=== PATIENT | female | born 1960 | race Caucasian/White ===

== ENCOUNTER 2017-10-03 19:03 | Emergency (ER) | END 2017-10-03 21:50 | disposition home or self-care (01) ==

== ENCOUNTER 2018-11-10 18:25 | Emergency (ER) | payer OTHER ==
[~2018-11-10] VITALS: Ht 152.4 cm; Wt 62.7 kg
[~2018-11-10 18:25] MED LIST: ACET500C5 PO; AMOX500C2 PO; IBUP-1561 PO
[2018-11-10 19:15] VITALS: Ht 152.4 cm; Wt 62.7 kg
[2018-11-10] MEDS ORDERED: TRAM50TA2 PO (22:46)
[2018-11-10] MEDS ORDERED: IBUP800T48 PO (22:46)
[2018-11-10] MEDS ORDERED: CYCL10TA7 PO (22:46)
--- NOTE | 2018-11-10 22:50 | ERD ---
ER Documentation Chief Complaint Chief Complaint right hand pain x 2 weeks. denies trauma HPI 58-year-old female is here with right hand pain that she has had for 2 weeks. 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 No numbness or tingling. Pain is localized in the radial aspect of the hand. Has been taking ibuprofen at home. No trauma. ROS All systems reviewed and are negative except as per history of present illness. Medications Home Meds Active Scripts Tramadol HCl (Tramadol HCl) 50 Mg Tablet, 50 MG PO Q4 PRN for PAIN, #20 TAB Prov:QUINTIN MANUEL PA-C 11/10/18 Ibuprofen* (Motrin*) 800 Mg Tab, 800 MG PO Q6, #30 TAB Prov:QUINTIN MANUEL PA-C 11/10/18 Cyclobenzaprine Hcl* (Cyclobenzaprine Hcl*) 10 Mg Tablet, 10 MG PO TID, #15 TAB Prov:QUINTIN MANUEL PA-C 11/10/18 Acetaminophen* (Tylophen*) 500 Mg Capsule, 1 CAP PO Q6H PRN for PAIN AND OR ELEVATED TEMP, #20 CAP Prov:HONG SOSA [employer] 10/03/17 Ibuprofen* (Motrin*) 400 Mg Tab, 400 MG PO Q6H PRN for PAIN AND OR ELEVATED TEMP, #30 TAB Prov:HONG SOSA [employer] 10/03/17 Amoxicillin* (Amoxicillin*) 500 Mg Cap, 500 MG PO TID for 10 Days, CAP Prov:HONG SOSA [employer] 10/03/17 Reported Medications [none] Unknown Strength No Conflict Check 10/03/17 Allergies Allergies: Coded Allergies: No Known Allergy (Unverified , 10/03/17) PMhx/Soc Medical and Surgical Hx: pt denies Surgical Hx Hx Cardiac Disorders: Yes (High Cholesterol) Hx Alcohol Use: No Hx Substance Use: No Hx Tobacco Use: No Smoking Status: Never smoker FmHx Family History: No diabetes Physical Exam Vitals Vital Signs Date Temp Pulse Resp B/P (MAP) Pulse Ox O2 O2 Flow FiO2 Time Delivery Rate 11/10/18 97.3 80 18 135/73 97 19:15 (93) Physical Exam Const: No acute distress Head: Atraumatic Eyes: Normal Conjunctiva ENT: Normal External Ears, Nose and Mouth. Neck: Full range of motion. No meningismus. Resp: Clear to auscultation bilaterally Cardio: Regular rate and rhythm, no murmurs Hand -right Skin: No laceration, or evidence of external trauma Compartments: Soft Sensation: Intact shoulder/pinky/middle finger/thumb web space Bones: Nontender Snuffbox: Nontender Joints: No effusion Wrist: Flex/Ext: Normal Uln/Radial deviation: Normal Pron/Supination Normal Finger: Flex/Ext: Normal Add/abd: Normal Thumb: Flex/Ext: Normal Opposition: Normal Thumbs up: Normal Procedures/MDM Right hand pain. No trauma. Neurovascularly intact. Prescription for ibuprofen Flexeril and tramadol given. No indication for imaging at this time. Patient counseled regarding my diagnostic impression and care plan. Prior to discharge all questions answered. Pt agrees with treatment plan and understands strict return precautions. Pt is instructed to follow up with primary care provider within 24-48 hours. Precautionary instructions provided including instr uctions to return to the ER if not improving or for any worsening or changing symptoms or concerns. Departure Diagnosis: Primary Impression: Pain of hand Condition: Stable Patient Instructions: Sprain Hand Additional Instructions: Llame al doctor ALFREDO y maría elena patricia GRZEGORZ PARA DENTRO DE 1-2 RIVERA.Dgale a la secretaria que nosotros le instruimos hacer esta grzegorz.Avise o llame si may cond icin se empeora antes de la grzegorz. Regresa aqui si peor o no mejor. QUINTIN MANUEL PA-C Nov 10, 2018 22:50
[2018-11-10 23:14] VITALS: BP 144/79; PULSE 69; RESP 18
== END 2018-11-10 23:15 | disposition home or self-care (01) ==
LOC: FTE 18:25
DX: M79.641 Pain in right hand (principal)
CPT/HCPCS: 99283